=== PATIENT | male | born 1945 | race Two or more races ===

== ENCOUNTER 2024-05-25 17:17 | Emergency (ER) | payer MEDICARE, MEDICAID, SELFPAY ==
[2024-05-25 17:40] VITALS: BP 106/67; PULSE 79; RESP 20; TEMP 37.1; O2SAT 97
--- NOTE | 2024-05-25 17:44 | EDRME_ITS ---
Rapid Medical Screening Exam [facility] Arrival date/time: 05/25/24 17:17 78-year-old male with a history of hypothyroidism, a colostomy, presents to the emergency room with a chief complaint of abdominal pain, no stool in his colostomy x 2 days, and dysuria I have greeted and performed a focused initial assessment of this patient. A comprehensive ED assessment and evaluation of the patient, analysis of all test results, and completion of the medical decision making process will be conducted by additional ED providers. Chief Complaint: Abdominal Pain Vital signs: Vital Signs Temperature 98.8 F 05/25/24 17:40 Pulse Rate 79 05/25/24 17:40 Respiratory Rate 20 05/25/24 17:40 Blood Pressure 106/67 05/25/24 17:40 Pulse Oximetry (%) 97 05/25/24 17:40 Oxygen Delivery Method Room Air 05/25/24 17:40 Vital signs reviewed by provider: Yes
[2024-05-25 18:39] LABS: Collection Type, Urine Clean Catch
--- NOTE | 2024-05-25 18:44 | PD.EDABDPN ---
ED Abdominal Pain RME/HPI General Chief Complaint: Abdominal Pain Stated complaint: UPPER ABDOMINAL PAIN TIMES 3 DAYS Time seen by provider: 05/25/24 18:20 Arrival date/time: 05/25/24 17:17 RME / HPI RME / HPI narrative: 05/25/24 17:17 78-year-old male with a history of hypothyroidism, a colostomy, presents to the emergency room with a chief complaint of abdominal pain, no stool in his colostomy x 2 days, and dysuria I have greeted and performed a focused initial assessment of this patient. A comprehensive ED assessment and evaluation of the patient, analysis of all test results, and completion of the medical decision making process will be conducted by additional ED providers. This section includes all my notes and documentations, including HPI, PE, and ED course. Handy Barakat MD HPI: 78-year-old male here with several days of upper abdominal pain radiating to the chest and nausea and decreased appetite and oral intake. Had colectomy in the past due to colon cancer. Has colostomy currently. No fever or chills. No other complaints. ROS: All negative except as documented in HPI. Physical Exam: General: Alert and oriented. In obvious pain. Eyes: Conjunctivae and lids clear. ENT: No nasal congestion. Neck: Supple. Heart: RRR. Lungs: No respiratory distress. Good air movement. No rhonchi, wheezing, rales. Abdomen: Soft with upper abdominal pain, difficult to localize further. Normal bowel sounds. No distension. No rebound or guarding. Back: No CVA tenderness. Skin: Warm and dry. Neuro: Alert and oriented X 3. I reviewed all diagnostic test results. My review of the chest and abdominal CT report is pneumonia and dilated pancreatic duct. Blood tests and urine tests remarkable for WBC 13.3, ESR 89, CRP 20.7. At this point, diagnoses include abdominal pain, pneumonia, dilated pancreatic duct, and history of colon cancer. Treatment here included IV fluid, Zofran, morphine, Rocephin, and Zithromax. Xanax given to help him sleep for MRCP in the morning. He felt much better. At 6 AM , the care of the patient was transferred to Dr. OLSON. Handy Barakat MD Related Data Home Medications ?Medication ?Instructions ?Recorded ?Confirmed diclofenac sodium 75 mg 75 mg PO DAILY ##0 01/08/13 tablet,delayed release famotidine 20 mg tablet 20 mg PO DAILY ##0 01/08/13 misoprostol 200 mcg tablet 200 mg PO TID ##0 01/08/13 Amitriptyline Hcl 25 mg PO 1800 ##0 02/20/14 Aspirin Ec * (ECOTRIN *) 81 mg PO QDAY ##0 02/20/14 levothyroxine 75 mcg tablet 75 mcg PO QDAY #0 tabs 02/20/14 (Synthroid) Allergies Allergy/AdvReac Type Severity Reaction Status Date / Time NKA* Allergy Uncoded 05/25/24 17:21 Course Quality Measures none Orders Category Date Time Status CT Screening NOW Care 05/25/24 18:59 Active MRI Screening NOW Care 05/25/24 23:03 Active Saline [Insert IV] NOW Care 05/25/24 18:[address] chest abdomen pelvis w Stat Exams 05/25/24 18:59 Completed MR MRCP Stat Exams 05/25/24 Ordered Amylase Stat Lab 05/25/24 18:47 Completed Bilirubin,Direct Stat Lab 05/25/24 18:47 Completed Blood Culture (Lab) Stat Lab 05/25/24 19:44 Received CBC Stat Lab 05/25/24 18:47 Completed CRP [C-Reactive Protein] Stat Lab 05/25/24 18:47 Completed Comprehensive Metabolic Panel Stat Lab 05/25/24 18:47 Completed Lactate (Lactic Acid) Stat Lab 05/25/24 18:47 Completed Lipase Stat Lab 05/25/24 18:47 Completed Magnesium Stat Lab 05/25/24 18:47 Completed Procalcitonin Stat Lab 05/25/24 18:47 Completed Sed Rate (ESR) Stat Lab 05/25/24 18:47 Completed TSH [Thyroid Stimulating Hormone] Stat Lab 05/25/24 18:47 Completed UA [Urinalysis] Stat Lab 05/25/24 18:15 Completed Urine Culture Stat Lab 05/25/24 18:15 Received ALPRazoLAM [Xanax] Med 05/25/24 23:42 Discontinued 0.75 mg PO X1 ONE Azithromycin Inj [Zithromax Inj] 500 mg Med 05/25/24 23:03 Discontinued Sodium Chloride 0.9% 250 ml [Ns] 250 ml IV X1 Morphine Inj Med 05/25/24 18:57 Discontinued 4 mg IVP X1 ONE Ondansetron Inj [Zofran Inj] Med 05/25/24 18:57 Discontinued 4 mg IV X1 ONE Sodium Chloride 0.9% 1000 ml [Ns] 1,000 ml Med 05/25/24 18:57 Discontinued IV 999 mls/hr cefTRIAXone [Rocephin] 1,000 mg Med 05/25/24 23:03 Discontinued SODIUM CHLORIDE 0.9% (Popper) [Ns 0.9% (P)] 50 ml IV X1 Vital Signs Vital signs: Vital Signs Temperature 98.8 F 05/25/24 17:40 Pulse Rate 79 05/25/24 17:40 Respiratory Rate 20 05/25/24 17:40 Blood Pressure 106/67 05/25/24 17:40 Pulse Oximetry (%) 97 05/25/24 17:40 Oxygen Delivery Method Room Air 05/25/24 17:40 Abdominal Pain MDM Patient data External records reviewed:: [facility] previous records Clinical information provided by:: patient and family Social determinants that could affect healthcare access:: none Patient has the following chronic illnesses:: History of colon cancer How is presenting disease/condition affected by chronic disease/condition?: exacerbated by Evaluation data The following diagnostics were reviewed and interpreted by me:: lab results and radiology exam(s) Lab and/or radiology exams considered but not ordered:: None Interpretation Summary: Abdominal pain, dilated pancreatic duct, history of colon cancer. Medications / Prescriptions Medications or Prescriptions considered but not ordered:: None Medication administrations:: Medication Administration History Discontinued Medications Alprazolam (Alprazolam 0.25 Mg Tablet) 0.75 mg PO X1 ONE Stop: 05/25/24 23:43 Last Admin: 05/25/24 23:56 Dose: 0.75 mg Documented By: SHEREEN Sodium Chloride (Ns) 1,000 mls @ 999 mls/hr IV .Q1H1M ONE Stop: 05/25/24 19:57 Last Infusion: 05/25/24 20:41 Dose: Infused Documented By: Admin: 05/25/24 19:35 Dose: 999 mls/hr Documented By: SHEREEN Azithromycin 500 mg/ Sodium (Chloride) 250 mls @ 250 mls/hr IV X1 ONE Stop: 05/26/24 00:02 Last Infusion: 05/26/24 00:56 Dose: Infused Documented By: Admin: 05/25/24 23:56 Dose: 250 mls/hr Documented By: SHEREEN Ceftriaxone Sodium 1,000 mg/ (Sodium Chloride) 50 mls @ 100 mls/hr IV X1 ONE Stop: 05/25/24 23:32 Last Infusion: 05/26/24 00:15 Dose: Infused Documented By: Admin: 05/25/24 23:31 Dose: 100 mls/hr Documented By: SHEREEN Morphine Sulfate (Morphine Sulf Inj 10 Mg/Ml Vial) 4 mg IVP X1 ONE Stop: 05/25/24 18:58 Last Admin: 05/25/24 19:34 Dose: 4 mg Documented By: SHEREEN Ondansetron HCl (Ondansetron Inj 2 Mg/Ml Inj 2 Ml) 4 mg IV X1 ONE; Protocol Stop: 05/25/24 18:58 Last Admin: 05/25/24 19:33 Dose: 4 mg Documented By: SHEREEN IV fluid, Zofran, morphine, Rocephin, Zithromax, Xanax. Consultations Consultation(s) initiated? (list below): No Diagnosis Differential diagnosis abdominal pain: abdominal pain, acute appendicitis, calculus of kidney, constipation, diverticulitis, gastroenteritis, pancreatitis and small bowel obstruction Most likely diagnosis given after review of the tests above:: Abdominal pain, dilated pancreatic duct, pneumonia Admission Indicated Admission indicated?: not indicated Explain why admission is indicated or not indicated:: Complete diagnostics pending. Admission Request Was there a request for admission?: No Disposition Plan Disposition Plan: other (specify) (Care of the patient was transferred to Dr. OLSON.) Discharge Plan Prescriptions/Referrals Prescriptions/Med Rec: No Action misoprostol 200 MCG tablet 200 mg PO TID Qty: 0 diclofenac sodium 75 MG tablet,delayed release (DR/EC) 75 mg PO DAILY Qty: 0 famotidine 20 MG tablet 20 mg PO DAILY Qty: 0 Amitriptyline Hcl 25 MG tablet 25 mg PO 1800 Qty: 0 Aspirin Ec * (ECOTRIN *) 81 MG TABLET.DR 81 mg PO QDAY Qty: 0 levothyroxine [Synthroid] 75 MCG tablet 75 mcg PO QDAY Qty: 0 Referrals: Edmund Luevano MD [Primary Care Provider] - In 1 week Problem List Clinical Impression: Abdominal pain, Pneumonia, Dilated pancreatic duct Patient/Caregiver Discharge Instructions Print Language: Malaysian
[2024-05-25 18:56] LABS: Bacteria,Urine Rare; Bilirubin,Urine Negative (Negative); Blood,Urine Negative (Negative); Clarity,Urine Clear (Clear/Hazy); Color,Urine Yellow (Lt Yel-Yel); Glucose, Urine Negative (Negative); Ketones,Urine Negative (Negative); Leukocyte Esterase,Urine Negative (Negative); Nitrite,Urine Negative (Negative); Protein,Urine 1+ (Neg - Trace); RBC,Urine 14 /hpf (0-3); Specific Gravity,Urine 1.035 (1.001-1.035); Squamous Epithelial Cell,Urine < 1 /hpf (0-5); WBC,Urine 1 /hpf (0-5)
--- NOTE | 2024-05-25 18:59 | XR_ITS ---
Examination: CT chest with intravenous contrast CT abdomen with intravenous contrast CT pelvis with intravenous contrast 2-D coronal and sagittal reconstructions Time of exam: May 25, 2024 2121 hours Comparison July 24, 2014 INDICATIONS: Chest and abdominal pain beginning 2 days ago CTDI: vol (mGy) : 3.87 DLP: (mGycm): 269 Technique: Multiple axial images of the chest, abdomen and pelvis with intravenous contrast, 3.0 mm slice thickness. Images obtained post intravenous injection Isovue 370 60 cc. 2-D sagittal and coronal reconstructions. Low dose protocols were performed. One or more of the following dose reduction techniques were used; automated exposure control, adjustment of the mA and/or KV according to patient size, use of iterative reconstruction technique. Findings: No thoracic aortic aneurysmal dilatation Pulmonary artery segments are not enlarged No pulmonary artery emboli Multiple soft nodular densities throughout the lungs most consistent with pneumonia, most prominent in the left lower lobe Dilated bronchi in the right lower lobe Hyperexpansion moderate No visualized liver or splenic lesion No gallstones Common bile duct measures 6 mm, pancreatic duct is dilated without definite pancreatic mass No hydronephrosis Heavy abdominal aortic calcification Abundant stool in the right colon No renal or ureteral calculi, no hydronephrosis Possible left ostomy No bowel obstruction No bladder mass AP prostate dimension 41 mm Fat-containing umbilical hernias Moderate osteopenia IMPRESSION: Negative for pulmonary artery emboli COPD Scattered soft nodular opacities throughout both lungs most consistent with pneumonia Bronchiectasis in the right lower lobe Common bile duct measures 6 mm, pancreatic duct is dilated, which is abnormal, recommend elective MRCP follow-up to exclude early pancreatic mass, not seen on the current study No bowel obstruction Moderate prostatomegaly
[2024-05-25 19:16] LABS: Lactate (Lactic Acid) 1.5 mMol/L (0.4-2.0)
[2024-05-25 19:19] LABS: Basophils # (Auto) 0.1 Thou/mm3 (0.0-0.2); Basophils % (Auto) 0 % (0-2.5); Eosinophils % (Auto) 0 % (0-10); Hematocrit 38.5 % (41.0-53.0); Immature Granulocytes % (Auto) 1 % (0-0); Immature Granulocytes Auto 0.06 Thou/mm3 (0.00-0.00); Lymphocytes # (Auto) 3.2 Thou/mm3 (1.0-4.8); Lymphocytes % (Auto) 24 % (10-50); Mean Corpuscular HGB Conc 33.8 g/dl (31.0-37.0); Mean Corpuscular Hemoglobin 29.1 pg (25.0-35.0); Mean Corpuscular Volume 86 fL (80-100); Monocytes # (Auto) 0.8 Thou/mm3 (0.0-0.8); Monocytes % (Auto) 6 % (0-12); Neutrophils # (Auto) 9.2 Thou/mm3 (1.8-7.7); Neutrophils % (Auto) 69 % (37-80); Nucleated Red Blood Cell % 0 /100 WBC (0); Platelet Count 220 Thou/mm3 (140-440); RDW Standard Deviation 41.1 fL (35.1-43.9); Red Blood Count 4.47 Miln/mm3 (4.50-5.90); White Blood Count 13.3 Thou/mm3 (3.8-10.6)
[2024-05-25 19:20] VITALS: BP 126/73; PULSE 59; RESP 18; TEMP 36.9; O2SAT 100
[2024-05-25 19:22] VITALS: BP 126/73; PULSE 62; RESP 19; TEMP 36.8; O2SAT 97; BMI 17.8
[2024-05-25 19:32] LABS: Sed Rate (ESR) 89 mm/hr (0-20)
[2024-05-25] MEDS: ONDANSETRON INJ 2 MG/ML INJ 2 ML 4 MG IV (19:33)
[2024-05-25] MEDS: MORPHINE SULF INJ 10 MG/ML VIAL 4 MG IVP (19:34)
[2024-05-25] MEDS: SODIUM CHLORIDE 0.9% 1000 ML 1,000 ML 999 ML IV (19:35)
[2024-05-25 19:51] LABS: Amylase 56 U/L (30-118); Bilirubin,Direct 0.1 mg/dL (0.0-0.3); C-Reactive Protein 20.7 mg/dL (0.0-0.9); Magnesium 2.1 mg/dL (1.6-2.6); Thyroid Stimulating Hormone 2.12 uIU/mL (0.55-4.78)
[2024-05-25 20:29] LABS: Alanine Aminotransferase 21 U/L (10-49); Albumin, Serum 4.1 gm/dL (3.4-4.8); Albumin/Globulin Ratio 1.2 (1.2-2.2); Alkaline Phosphatase 94 U/L (46-116); Anion Gap 8 (7-16); Aspartate Amino Transferase 28 U/L (0-34); BUN/Creatinine Ratio 19 Ratio (12-20); Bilirubin,Total 0.4 mg/dL (0.3-1.2); Blood Urea Nitrogen 21 mg/dL (9-23); Calcium 10.7 mg/dL (8.3-10.6); Calcium (Corrected) 10.7 mg/dL (8.5-10.1); Chloride 105 mMol/L (98-107); Creatinine (Component) 1.1 mg/dL (0.6-1.3); Estimated Creatinine Clearance 38.6 mL/min (>60); Globulin 3.3 gm/dL (2.3-3.5); Glucose 142 mg/dL (74-106); Lipase 37 U/L (12-53); Osmolality,Calculated 282 (275-295); Potassium 4.1 mMol/L (3.4-5.1); Sodium 139 mMol/L (136-145); Total Protein 7.4 gm/dL (5.7-8.2); eGFR > 60 See Note
[2024-05-25 22:11] VITALS: BP 129/71; PULSE 60; RESP 20; TEMP 36.7; O2SAT 100
[2024-05-25] MEDS: cefTRIAXone 1,000 MG in SODIUM CHLORIDE 0.9% (Popper) 50 ML 100 MG IV (23:31)
[2024-05-25 23:48] VITALS: BP 107/60; PULSE 69; RESP 18; TEMP 37.1; O2SAT 95
[2024-05-25] MEDS: AZITHROMYCIN INJ 500 MG in SODIUM CHLORIDE 0.9% 250 ML 250 ML 250 MG IV (23:56)
[2024-05-25] MEDS: ALPRazoLAM 0.25 MG TABLET 0.75 MG PO (23:56)
[2024-05-26] VITALS (8 sets, daily range): BP systolic 90–111; BP diastolic 49–64; PULSE 56–80; RESP 15–24; TEMP 36.7–36.9; O2SAT 95–99
--- NOTE | 2024-05-26 | XR_ITS ---
MRI abdomen, without contrast. MRCP Date and time of exam: May 26, 2024 0741 hours INDICATIONS: Abdominal pain this week, abnormal dilated pancreatic duct on CT abdomen May 25, 2024 2121 hours Technique: Multiple axial and coronal images of the abdomen have been obtained with the Siemens 1.5T MRI scanner. Images obtained included T1 weighted transverse images, T2-weighted transverse images, T2-weighted transverse images fat-suppressed, T2 weighted haste fat suppressed transverse images, T1 weighted images, in and out of phase images, T2-weighted coronal images, breath hold, T2 weighted haze coronal images as well as T2 weighted coronal thick slab images, MRCP. Findings: Mild intrahepatic biliary tract dilatation No gallstones Gallbladder wall does not appear thickened Patient motion degrades scan image quality No common hepatic or common bile duct stones, common hepatic duct 4 mm Pancreatic duct is dilated measuring up to 6 mm, pancreatic head measures 2.2 cm Aorta normal size No hydronephrosis No splenomegaly No ascites IMPRESSION: Pancreatic duct is dilated measuring up to 6 mm, pancreatic head measures 2.2 cm Recommend MRI abdomen pancreas follow up post intravenous contrast
[2024-05-26] MEDS: SODIUM CHLORIDE 0.9% 1000 ML 1,000 ML 999 ML IV (04:55)
--- NOTE | 2024-05-26 06:28 | PD.EDADDENDU ---
Emergency Room Addendum Addendum Narrative: 0600: Care assumed from Dr. Barakat, the previous shift emergency physician. Past medical, surgical, social and family history reviewed. Vitals and home medications reviewed. I will assume the care of the patient at this time. Please refer to the emergency department record for history and examination from initial visit.? Physical exam by me shows patient under no acute distress at this time. 1230: Patient remains clinically stable throughout the emergency department visit. Re-assessment at the time of disposition demonstrates that the patient is in no acute distress. We reviewed all the results, analysis, and treatment plans. Patient is amenable to discharge. Strict return precautions were outlined. Patient was discharged in stable condition. Diagnosis: -Abdominal pain -Pneumonia -Dilated pancreatic duct RADIOLOGY Procedure(s): MR MRCP Accession Number(s): [id number] cc: Edmund Luevano MD; Handy Barakat MD; Gregory Phillips MD~ MRI abdomen, without contrast. MRCP Date and time of exam: May 26, 2024 0741 hours INDICATIONS: Abdominal pain this week, abnormal dilated pancreatic duct on CT abdomen May 25, 2024 2121 hours Technique: Multiple axial and coronal images of the abdomen have been obtained with the Siemens 1.5T MRI scanner. Images obtained included T1 weighted transverse images, T2-weighted transverse images, T2-weighted transverse images fat-suppressed, T2 weighted haste fat suppressed transverse images, T1 weighted images, in and out of phase images, T2-weighted coronal images, breath hold, T2 weighted haze coronal images as well as T2 weighted coronal thick slab images, MRCP. Findings: Mild intrahepatic biliary tract dilatation No gallstones Gallbladder wall does not appear thickened Patient motion degrades scan image quality No common hepatic or common bile duct stones, common hepatic duct 4 mm Pancreatic duct is dilated measuring up to 6 mm, pancreatic head measures 2.2 cm Aorta normal size No hydronephrosis No splenomegaly No ascites IMPRESSION: Pancreatic duct is dilated measuring up to 6 mm, pancreatic head measures 2.2 cm Recommend MRI abdomen pancreas follow up post intravenous contrast Dictated By: Gregory Phillips MD
[2024-05-26] MEDS: CYCLObenzaPRINE 5 MG TABLET PO (13:06)
== END 2024-05-26 13:16 | disposition home or self-care (01) ==
PROVIDERS: Emergency Medicine; Nurse Practitioner Family; Emergency Provider Emergency Medicine; PCP Family Medicine
DX: R10.9 Unspecified abdominal pain (principal); J18.9 Pneumonia, unspecified organism; K86.89 Other specified diseases of pancreas; E03.9 Hypothyroidism, unspecified; Z93.3 Colostomy status
CPT/HCPCS: 36415; 71260; 74177; 80053; 81001; 82150; 82248; 83605; 83690; 83735; 84145; 84443; 85025; 85652; 86140; 87040; 87086; 96361; 96365; 96367; 99285; A4649; J0456; J0696; J2270; J2405; J7030; J7050; Q9967; S8037; 74181; A9270